=== PATIENT | female | born 1975 | race Caucasian/White ===

== ENCOUNTER 2017-08-03 18:00 | Outpatient (CLI) | payer OTHER | END 2017-08-03 18:01 | disposition home or self-care (01) | LOC: SLEEPLAB 18:00 | PROVIDERS: ATTEND Nurse Practitioner Family | DX: G47.33 Obstructive sleep apnea (adult) (pediatric) (principal); E66.9 Obesity, unspecified; R06.83 Snoring; F32.9 Major depressive disorder, single episode, unspecified; F41.9 Anxiety disorder, unspecified; G47.00 Insomnia, unspecified; E11.9 Type 2 diabetes mellitus without complications; Z68.43 Body mass index [BMI] 50.0-59.9, adult | CPT/HCPCS: 95806 ==

== ENCOUNTER 2019-10-20 13:14 | Inpatient (IN) | payer OTHER ==
[~2019-10-20 13:14] MED LIST: Iopamidol-370 76% 500 ML 1 ML ONE
[2019-10-20 13:47] LABS: #Basophils 0.1 thou/uL (0.0-0.2); #Eosinphils 0.3 thou/uL (0.0-0.7); #Lymphocytes 3.3 thou/uL (1.20-3.40); #Neutrophils 7.1 thou/uL (1.40-6.50); %Eosinophils 2.6 % (0.0-10.0); %Lymphocytes 27.9 % (21.0-51.0); %Monocytes 8.7 % (0.0-10.0); %Neutrophils 59.9 % (42.0-75.0); Hemoglobin 10.5 g/dL (12.0-16.0); Mean Corpuscular HGB CONC 31.8 g/dL (32.0-36.0); Mean Corpuscular Hemoglobin 32.1 pg (27.0-31.0); Mean Platelet Volume 8.9 fL (7.4-10.4); Platelet Count 127 thou/uL (130-400); RBC Distribution Width 12.7 % (11.5-14.5); Red Blood Cell (RBC) Count 3.26 mill/uL (4.20-5.40); White Blood Cell (WBC) Count 11.8 thou/uL (4.8-10.8)
[2019-10-20 13:52] LABS: INR-International Normal Ratio 1.6; PTT 27.1 sec (22.9-36.1); Prothrombin Time 18.6 sec (12.0-14.7)
[2019-10-20 14:02] LABS: ALT (SGPT) 25 U/L (8-55); AST (SGOT) 40 U/L (5-34); Albumin 2.6 g/dL (3.5-5.0); Alkaline Phosphatase 132 U/L (40-110); Anion Gap 12 mmol/L (10-20); BUN (Urea Nitrogen) 16 mg/dL (7.0-18.7); Bilirubin, Total 1.8 mg/dL (0.2-1.2); CK (CPK) 107 U/L (29-168); Calc. Creatinine Clearance 0 mL/min (70-130); Calcium 7.7 mg/dL (7.8-10.44); Carbon Dioxide 19 mmol/L (22-29); Chloride 105 mmol/L (98-107); Estimated GFR-MDRD 83; Globulin 3.1 g/dL (2.4-3.5); Glucose 178 mg/dL (70-105); Lipase 54 U/L (8-78); Protein, Total 5.7 g/dL (6.0-8.3); Sodium 132 mmol/L (136-145)
--- NOTE | 2019-10-20 14:40 | CT ---
CT BRAIN WITHOUT CONTRAST: HISTORY: Trauma, syncope, vomiting blood COMPARISON: 10/13/2012 FINDINGS: No evidence of acute infarct, hemorrhage, midline shift or abnormal extra-axial fluid collections is seen. The ventricular size is appropriate and the basilar cisterns are patent. The bony calvarium is intact. The visualized paranasal sinuses and mastoid air cells are well aerated. IMPRESSION: No CT evidence of acute intracranial process.
--- NOTE | 2019-10-20 14:47 | CT ---
CT CERVICAL SPINE WITH CORONAL AND SAGITTAL REFORMATIONS AND NO IV CONTRAST: HISTORY: Syncope, fall, neck pain FINDINGS: There are mild degenerative changes . No fracture, subluxation or facet malalignment is identified. No prevertebral soft tissue swelling is apparent. The visualized lung apices are unremarkable. IMPRESSION: No CT evidence for fracture or traumatic subluxation.
--- NOTE | 2019-10-20 15:14 | RAD ---
XR Chest 1 View Portable HISTORY: Syncope COMPARISON: 10/13/2012 FINDINGS: The heart size is normal. The lungs are well expanded without focal areas of consolidation, pneumothorax or pleural effusions. IMPRESSION: No radiographic evidence of acute cardiopulmonary process.
[2019-10-20] MEDS ORDERED: Pantoprazole 40 MG VIAL ONE (15:31)
--- NOTE | 2019-10-20 15:41 | CT ---
CT OF THE ABDOMEN AND PELVIS WITH IV CONTRAST: 10/20/19 INDICATION: 44-year-old female involved in a trauma with history of syncope and vomiting blood and hypotension. COMPARISON: None. FINDINGS: The visualized lung bases are clear. The gallbladder is surgically absent. There is debris, fluid and gas distending the stomach which is nonspecific. There are mild varicosities seen within the paraesophageal region within the gastrohepat ic ligament. The spleen measures 14.6 cm. There is a nodular contour of the liver, suspicious for und erlying cirrhosis. The pancreas and adrenal glands appear within normal limits. Kidneys are normal ap pearing. The bladder is decompressed. Unopacified large and small bowel show no definite acute abnorm ality. The small bowel is normal appearing. There is scattered degenerative and osteoarthritic change. No definite acute osseous abnormality is e vident. IMPRESSION: 1. Findings of cirrhosis with portal hypertension with prominent gastrohepatic paraesophageal va ricosities. 2. No additional acute abnormality. 3. Cholecystectomy. POS: [facility]
[2019-10-20] MEDS ORDERED: Sodium Chloride 0.9% (PF) 10 ML VIAL FS PRN (15:45)
[2019-10-20] MEDS ORDERED: Pantoprazole 80 MG, Admixture Fee 1 EACH in Sodium Chloride 0.9% 100 ML IVPB SCH (15:45)
[2019-10-20] MEDS ORDERED: Octreotide Acetate 1,250 MCG in Sodium Chloride 0.9% 250 ML 250 ML IVPB SCH (16:00)
[2019-10-20] MEDS ORDERED: Octreotide Acetate 100 MCG/ML VIAL SLOW IVP SCH (16:00)
[2019-10-20] MEDS ORDERED: Pantoprazole 40 MG VIAL IVP SCH (16:00)
[2019-10-20] MEDS ORDERED: Sodium Chloride 0.9% 1,000 ML IV SCH (16:00)
[2019-10-20] MEDS ORDERED: cefTRIAXone\\ROCEPHIN 1 GM VIAL ONE (16:34)
[2019-10-20] MEDS ORDERED: Dextrose 50% Abboject 50 ML SYRINGE SLOW IVP PRN (16:55)
[2019-10-20] MEDS ORDERED: HumaLOG 300 UNITS/3 ML VIAL SC PRN (16:55)
[2019-10-20] MEDS ORDERED: Dextrose 5% in Water 1,000 ML IV PRN (16:55)
[2019-10-20] MEDS ORDERED: Ondansetron ODT 4 MG TAB PO PRN (17:13)
[2019-10-20] MEDS ORDERED: Ondansetron PF 4 MG/2 ML Vial IVP PRN (17:13)
[2019-10-20] MEDS ORDERED: Acetaminophen 325 MG TAB PO PRN (17:13)
[2019-10-20 17:56] LABS: Iron 185 ug/dL (50-170); Iron Binding Capacity, Total 181 mcg/dL (265-497)
[2019-10-20 18:09] LABS: Ferritin 101.87 ng/mL (10-291); Thyroid Stimulating Hormone 0.5155 uIU/mL (0.35-4.94)
--- NOTE | 2019-10-20 18:14 | HP ---
PRIMARY CARE PHYSICIAN: Grant Smith MD CHIEF COMPLAINT: Syncope with collapse. HISTORY OF PRESENT ILLNESS: The patient is a 44-year-old female with past medical history significant for diabetes type 2, non-insulin dependent; morbid obesity; and migraine headaches, who presents to the ER for the above complaint. The patient reports waking up this morning with generalized abdominal cramping, it was constant. It was associated with nausea and general malaise. She denies any vomiting or diarrhea. She denies dysuria. She denies any recent fever or chills. She reports that she decided to go in to work where her symptoms continued. She went to the bathroom and had 3 to 4 dark stools. Denies any pain with BM. She denies any vomiting. She reports that she also became diaphoretic and felt dizzy. She called her spouse and her spouse drove her to the local clinic for further evaluation. On the way to the clinic, she felt nauseous, so she got out of the car to vomit. Next thing she remembers is that EMS was standing over. Her had called the EMS after she collapsed on the ground and hit her head on a curb. When EMS arrived, the patient had a reported blood pressure of 80/40, approximately 400 mL of bright red blood on her shirt and chest. Her GCS was 15. She was given 1 L of normal saline. She was taken to the ER. In the ER, the patient presented with stable vital signs. She was afebrile, normal blood pressure of 107/57, heart rate was normal, respirations were normal at 98% on room air. CT of the brain and C-spine was negative for any acute intracranial bleed or fracture. CT of the abdomen was positive for cirrhosis of the liver with esophageal varices and portal hypertension. Her initial hemoglobin was 10.5, repeat hemoglobin was 11. Her fecal occult blood was positive. The patient was placed on octreotide and Protonix drip and was given IV fluids, 2 L of normal saline. She was given Rocephin IV. Dr. Garcia was consulted. Of note, the patient reports that she had a hysterectomy in 2018 and the doctor who performed the surgery informed her that her liver looked cirrhotic and she got a referral to Dr. Ragland for further evaluation. Dr. Ragland told her that she had a fatty liver and did not have cirrhosis. She denies any history of chronic NSAID usage or alcohol intake. She has not had any recent procedures or surgeries. She is not on any blood thinning medications. She denies any history of any IV drug use. Has no risk factors for hepatitis. PAST MEDICAL HISTORY: 1. Type 2 diabetes, noninsulin dependent. 2. Morbid obesity. 3. Migraines. PAST SURGICAL HISTORY: 1. Hysterectomy in 2018. 2. Cholecystectomy. SOCIAL HISTORY: The patient lives with her in [place]. She works for [employer] She has no history of smoking, illicit drug use, or alcohol intake. FAMILY HISTORY: The patient is adopted. ALLERGIES: 1. NAPROXEN. 2. NSAIDS. HOME MEDICATIONS: 1. Metformin 500 mg p.o. t.i.d. 2. Multivitamin. REVIEW OF SYSTEMS: All review of systems are negative unless otherwise stated in HPI. PHYSICAL EXAMINATION: VITAL SIGNS: Temperature 98.1, blood pressure 107/57, heart rate is 71, respirations 20, and 98% on room air, 0/10 pain. CONSTITUTIONAL: The patient is alert and oriented to person, place, and time. No acute distress. Nontoxic in appearance. She is able to stand and ambulate without any assistance. She is obese. HEENT: Head; atraumatic and normocephalic. Eyes; PERRLA. Extraocular muscles intact. Sclerae nonicteric. NECK: Supple. Trachea midline. No JVD. No cervical adenopathy. No central spinous tenderness. Full range of motion. ENT: Nares patent bilaterally. TMs intact bilaterally. Oropharynx is clear. Uvula midline. Moist mucous membranes. No pallor. No oral lesions. RESPIRATORY/CHEST: Respirations even and nonlabored. Clear to auscultation. No rhonchi, wheezes, or rales. CARDIOVASCULAR: S1, S2 appreciated. No murmurs, rubs, or gallops. ABDOMEN: Abdomen is soft, nontender. Active bowel sounds. No guarding. No rigidity. No rebound tenderness. Negative Rovsing sign. No abdominal bruit auscultated. BACK: Full range of motion. No central spinous tenderness. No CVA tenderness. EXTREMITIES: Upper extremities, full range of motion. Strength normal. Sensation intact. Palpable radial pulses. Lower extremities; full range of motion, normal strength, sensation intact. Palpable pedal pulses. No swelling. NEUROLOGIC: Cranial nerves 2 through 12 intact. The patient is alert and oriented to person, place, and time. No focal deficits. Stable gait. PSYCHIATRIC: Normal affect. Alert and oriented to person, place, and time. LABS AND DIAGNOSTICS: CT of the abdomen was positive for cirrhotic liver with esophageal varices and portal hypertension. CT of the brain was negative for any acute intracranial process. CT of the C-spine was negative for any acute fracture or dislocation. EKG NSR. Chest x-ray was negative. Initial troponin was negative. BNP was 19.5. Sodium 132, potassium 4, chloride 105, CO2 of 19, BUN 16, creatinine 0.76 , glucose 178, T-bilirubin 1.8, alkaline phosphatase 132, AST 40, ALT 25, PT 18.6 , INR 1.6. Fecal occult blood was positive with WBCs 11.8, hemoglobin 11, hematocrit 32.9, and platelets 127. IMPRESSION AND PLAN: 1. Upper gastrointestinal bleed. We will admit the patient to the telemetry floor inpatient status. Expected length of stay, at least 2 midnights. We will continue Protonix and octreotide drips. We will continue IV fluid support. We will continue Rocephin daily. We will consult GI. We will trend hemoglobin and hematocrit q.4 hours. We will check orthostatic vital signs. We will get alpha-1 antitrypsin, hepatitis panel, AMA, ARANZA, fasting lipid panel, and iron studies. We will avoid all nonsteroidal anti-inflammatory drugs. 2. Acute blood loss anemia. Likely secondary to problem #1. 3. Syncope with collapse, likely secondary to upper gastrointestinal bleed. The patient had no cardiovascular symptoms. She denies any chest pain or heart palpitations. She does have cardiovascular risk factors, morbid obesity, and diabetes. Initial troponin was negative. EKG was normal. We will continue to trend troponins, and we will continue to registered nurse cardiac telemetry. 4. Diabetes type 2, noninsulin dependent. The patient takes metformin 500 mg t.i.d. We will hold metformin for now. We will start the patient on mild sliding scale and add Accu-Cheks a.c. and at bedtime. 5. Morbid obesity. 6. SCDs for deep venous thrombosis prophylaxis. No pharmaco deep venous thrombosis prophylaxis. 7. Protonix for gastrointestinal prophylaxis. The patient is a full code. Her MPOA is her , Nir, his number is [phone]. Discussed the case with Dr. Lainez. Job ID: [id number] [facility]IATRIC CENTERAgnes
[2019-10-20 18:24] LABS: HBCM Index 0.08 S/CO (0-0.79); HBSAg Index 0.26 S/CO (0-0.99); Hep A IgM AB Non-Reactive (NonReactive); Hep A IgM S/CO 0.18 S/CO (0-0.79); Hep B Surf Ag Non-Reactive S/CO (NonReactive); Hep C IgG Ab Non-Reactive (NonReactive); Hepatitis B Core IgM Abs Non-Reactive (NonReactive)
[2019-10-20 20:02] VITALS: BMI 50.0
[2019-10-20 20:12] LABS: Troponin I 0.287 ng/mL (< 0.028)
[2019-10-20] MEDS: Sodium Chloride 0.9% 1,000 ML IV SCH (21:00)
[2019-10-20 22:29] LABS: Troponin I 0.022 ng/mL (< 0.028)
[2019-10-21] MEDS ORDERED: Sodium Chloride 0.9% (PF) 10 ML VIAL FS PRN (00:42)
[2019-10-21 00:57] LABS: Hemoglobin 9.1 g/dL (12.0-16.0)
[2019-10-21 04:56] LABS: ALT (SGPT) 27 U/L (8-55); AST (SGOT) 38 U/L (5-34); Albumin 2.6 g/dL (3.5-5.0); Alkaline Phosphatase 108 U/L (40-110); Anion Gap 10 mmol/L (10-20); BUN (Urea Nitrogen) 17 mg/dL (7.0-18.7); Bilirubin, Total 1.3 mg/dL (0.2-1.2); Calc. Creatinine Clearance 237 mL/min (70-130); Calcium 7.6 mg/dL (7.8-10.44); Carbon Dioxide 22 mmol/L (22-29); Chloride 110 mmol/L (98-107); Estimated GFR-MDRD Greater than 90; Globulin 2.9 g/dL (2.4-3.5); Glucose 169 mg/dL (70-105); Potassium 4.2 mmol/L (3.5-5.1); Protein, Total 5.5 g/dL (6.0-8.3); Sodium 138 mmol/L (136-145)
[2019-10-21 05:17] LABS: Amphetamine Not Detected (NotDetected); Barbiturates Screen Not Detected (NotDetected); Benzodiazepine Screen Not Detected (NotDetected); Cocaine Metabolite Screen Not Detected (NotDetected); Medtox Control Line Valid? VALID (VALID); Medtox Reader # READER 4; Methadone Not Detected (NotDetected); Methamphetamine Not Detected (NotDetected); Opiate Screen Not Detected (NotDetected); Oxycodone Screen Not Detected (NotDetected); Phencyclidine (PCP) Not Detected (NotDetected); THC/Cannabinoid Screen Not Detected (NotDetected); Tricyclic Screen Not Detected (NotDetected)
[2019-10-21] MEDS: Sodium Chloride 0.9% 1,000 ML IV SCH ×2 (05:34→22:53)
[2019-10-21 08:30] LABS: #Basophils 0.1 thou/uL (0.0-0.2); #Eosinphils 0.2 thou/uL (0.0-0.7); #Lymphocytes 2.7 thou/uL (1.20-3.40); #Monocytes 1.2 thou/uL (0.11-0.59); #Neutrophils 9.1 thou/uL (1.40-6.50); %Basophils 0.6 % (0.0-1.0); %Eosinophils 1.6 % (0.0-10.0); %Neutrophils 68.8 % (42.0-75.0); Hemoglobin 8.4 g/dL (12.0-16.0); Mean Corpuscular HGB CONC 33.4 g/dL (32.0-36.0); Mean Corpuscular Hemoglobin 33.1 pg (27.0-31.0); Mean Corpuscular Volume 98.9 fL (78.0-98.0); Mean Platelet Volume 8.6 fL (7.4-10.4); Platelet Count 102 thou/uL (130-400); Platelet Morphology Comment Appears Decreased; RBC Distribution Width 12.9 % (11.5-14.5); Red Blood Cell (RBC) Count 2.55 mill/uL (4.20-5.40); White Blood Cell (WBC) Count 13.2 thou/uL (4.8-10.8)
[2019-10-21 08:31] LABS: MDiff Complete? YES
[2019-10-21 09:54] LABS: Hemoglobin 8.4 g/dL (12.0-16.0)
--- NOTE | 2019-10-21 10:35 | CON ---
DATE OF CONSULTATION: 10/20/2019 REASON FOR CONSULTATION: GI hemorrhage. CONSULTING PHYSICIAN: Dr. Mahesh Lainez. HISTORY OF PRESENT ILLNESS: Ms. Henry is a pleasant 44-year-old female, who has been seen by Dr. Ragland in the past for fatty liver. There has been concern for cirrhosis at the time of her hysterectomy about 4 years ago. She states initially she was seen back in the late by Dr. Ragland. After she had some problems after cholecystectomy, she reports she had ERCP and a colonoscopy back then. Subsequent to that some point in time, she was diagnosed with fatty liver, which she has followed for some time and then more recently when she had her hysterectomy, the surgeon told her though she had cirrhosis, then she followed back up with Dr. Ragland that was about 4 or 5 years ago, and apparently at that time it is felt that her liver disease had not really progressed that much, that evaluation is really not available to me at this time. In any event, she has been feeling well and doing okay. She takes medicines for diabetes and high blood pressure. She does not smoke. She has not used any drugs in the past. She states that pretty significant evaluation for abnormal LFTs have been normal in the past with Dr. Ragland. She was at work this morning when she felt a little bit ill and cramping in the lower abdomen and when ultimately had a melenic stool followed by several other, she began to feel weak and just thought maybe some of her , so she took her metformin had a little snack. She got up to go to out of town or she was going to drop off some parts, but then became dizzy and weak and called her . They are going to go to the [facility] in police clinic over here by the hospital. When they got there, she had episodes of hematemesis and then passed out. Also, she was brought to [place] by EMS and threw up a few more times in the ambulance apparently. She was initially mildly hypotensive in the ER. Dr. Weathers called me and she stabilized her pressure is as low as 101/83. Her pulse rate was 91 and 70 and stabilized in mid 80s. She notes she has had no melena or further hematemesis since admission. She was started on PPI and Protonix. She had a chest x-ray in the emergency room that was normal. Because of her fall and hitting her head, she had a CT of brain and cervical spine in the emergency room, which were normal and she had a CAT scan of abdomen and pelvis, which revealed portal hypertensive change with prominent gastrohepatic, paraesophageal varices, cirrhotic liver, previous cholecystectomy. No overt masses or lesions were identified in the liver; although, this was not a three-phase study. I talked with the patient, she has never had any GI bleeding before. She does take NSAIDs, ibuprofen occasionally for headaches but not more than one or two a week. She denies alcohol use. She states she is getting immunized for hepatitis B. She denies any episodes of confusion or edema. No family history of cirrhosis, but she was adopted. She has no family history. PAST MEDICAL HISTORY: Type 2 diabetes, nonalcoholic fatty liver disease, possible cirrhosis based on although GI followup apparently did not reveal that. History of endometriosis. Polycystic ovarian syndrome. PAST SURGICAL HISTORY: Cholecystectomy, hysterectomy, previous lysis of adhesions, right ovarian cystectomy and ablation of endometriosis in the past. ALLERGIES: NAPROSYN, UNCLEAR SOURCE. MEDICATIONS: Medications at home: 1. Metformin. 2. Multivitamin. Medications here: 1. Rocephin q.24 hours. 2. Sliding scale insulin. 3. Octreotide drip. 4. Zofran p.r.n. 5. Protonix drip. 6. Normal saline 100 an hour. PHYSICAL EXAMINATION: GENERAL: The patient is resting comfortably in bed. Weight is 310 pounds, temperature 97.5, pulse 83, and blood pressure 126/59. GENERAL: She is in no distress. She is a very pleasant lady. She has no overt icterus. She is alert and oriented to person, place, and time. There is thick with some hyperpigmentation consistent with PCOS syndrome. LUNGS: Clear. HEART: Regular rate and rhythm without clicks or murmurs. ABDOMEN: Soft and nontender. There is no rebound. No guarding. There is no shifting dullness or fluid wave. EXTREMITIES: No clubbing, cyanosis, or edema. She has no asterixis, palmar erythema, or spider angioma. LABORATORY DATA: Hemoglobin was 15.4 back in 2018, on presentation with hematocrit of 32.9 and 32.5, most recently at 2100 hours the hematocrit is 30. INR is 1.6. Plasma alcohol was undetectable. Hepatitis A, B, and C were negative. Platelet count was 127,000. Chemistry; sodium 132, potassium 4, chloride 105, bicarb 19, BUN 16, creatinine 0.7, glucose 178, calcium 7.7. Bilirubin 1.8, AST 40, ALT 25, alkaline phosphatase 132. Iron 210, TIBC 179, ferritin 101, albumin 2.6, total protein 5.7, these were . Triglycerides 111, troponin 0.01. TSH 0.5. ASSESSMENT: Upper GI hemorrhage. Differential diagnosis included an ulcer or varices. She does have known varices on CT scan. Her platelet count though is fairly high as atypical to have variceal hemorrhage with platelet counts greater than 100. However, with fatty liver, sometimes it will be more portal hypertension just due to the amount of fatty replacement unless due to fibrosis. PLAN: Agree with octreotide, Protonix, and empiric antibiotics. We will proceed with EGD tomorrow. We will talk with Dr. Ragland and see if what other workups have been done in the past. Some of this may need to be repeated depending on the findings of this study. The risks, benefits, and possible complications of endoscopy including perforation, bleeding, reaction of medication, aspiration, unable to control bleeding, the possibly finding of varices require TIPS or other intervention discussed with the patient and her over the phone this evening. I will talk with him tomorrow before and after the procedure. Job ID: [id number]
[2019-10-21] MEDS ORDERED: Propofol 1,000 MG/100 ML VIAL IV ONE ×5 (11:12→19:06)
[2019-10-21] MEDS ORDERED: hydrALAZINE 20 MG/ML VIAL ONE (11:57)
--- NOTE | 2019-10-21 11:58 | OP ---
DATE OF PROCEDURE: 10/21/2019 PROCEDURE PERFORMED: Esophagogastroduodenoscopy, control of hemorrhage. PREPROCEDURE DIAGNOSES: 1. Cirrhosis, presumptively from nonalcoholic fatty liver disease. 2. Gastrointestinal hemorrhage with varices noted on CT scan. Hemoglobin 8.4, dropped from 11.0 on admission. Platelet count 102. INR 1.6. ANESTHESIA: General endotracheal anesthesia. POSTPROCEDURE DIAGNOSES: 1. Esophageal varices, one with thrombin clot, grade 3, with multiple red kia signs. 2. Portal hypertensive gastropathy with no bleeding or varices in the stomach. 3. Normal duodenum to the third portion. 4. Esophageal variceal banding x8 performed, slight oozing persisted to the end of the procedure, decision was made to leave the patient intubated for airway protection for 24 hours. RECOMMENDATIONS: 1. Continue octreotide drip. 2. Continue Protonix IV q.12. 3. N.p.o. 4. No NG tube. 5. Continue airway protection in the ventilator, plan for extubation in the morning if remains stable. 6. Would not transfuse unless hemoglobin less than 7. 7. Pulmonary consulted. Case discussed with them. . PROCEDURE IN DETAIL: After the patient was informed of the risks, benefits, and possible complications of endoscopy including perforation, reaction to medication, aspiration, informed consent was obtained. The likelihood of variceal bleeding was discussed with the patient and on the phone he is not allowed to come into the hospital secondary to COVID restrictions in visitation. She was intubated. The endoscope was advanced through the esophagus, stomach, to the second and third portions of the duodenum and slowly removed. The duodenum was normal. The stomach was notable for portal hypertensive gastropathy with no variceal bleeding or blood. The stomach was fully distended. It was normal on forward and retroflexed views. The endoscope was then brought into the esophagus, where 3 to 4 columns of grade 3 varices with multiple red kia signs and one thrombin clot were noted. There was no active bleeding. Banding was started at 40 cm just below the GE junction and continued to the 30 cm with ablation of varices, there was slight oozing from the varix with the thrombin clot. At the end of the procedure, even though the area had been banded thoroughly, decision was made to keep the patient ventilated for airway protection. The scope was removed. The patient was brought to recovery room in stable condition. The findings and plan were discussed with the patient's over the phone. Job ID: [id number]
[2019-10-21] MEDS ORDERED: Fentanyl 100 MCG/2 ML VIAL ONE (12:23)
[2019-10-21] MEDS ORDERED: DISCONTINUE PREVIOUS NARCOTIC PAIN MEDICATIONS AND BENZODIAZEPINES FS SCH (12:41)
[2019-10-21] MEDS ORDERED: fentaNYL Citrate/PF 2,000 MCG in Sodium Chloride 0.9% 60 ML IV SCH (12:41)
[2019-10-21] MEDS ORDERED: Fentanyl BOLUS 250 ML IVPB PRN (12:41)
[2019-10-21] MEDS ORDERED: Propofol BOLUS 1,000 MG/100 ML VIAL IV PRN (12:41)
[2019-10-21] MEDS ORDERED: Lorazepam 2 MG/ML VIAL SLOW IVP PRN (12:41)
[2019-10-21] MEDS ORDERED: PROPOFOL 200 MG/20 ML VIAL ONE (13:16)
[2019-10-21] MEDS ORDERED: Ondansetron PF 4 MG/2 ML Vial ONE (13:16)
[2019-10-21] MEDS ORDERED: Rocuronium Bromide 10 MG/ML (10ML VIAL) ONE (13:16)
[2019-10-21] MEDS ORDERED: Succinylcholine Chloride 20 MG/ML 10 ml SYRINGE FS ONE (13:16)
[2019-10-21] MEDS ORDERED: Lidocaine 1% PF 5 ML VIAL ONE (13:16)
--- NOTE | 2019-10-21 13:23 | CON ---
DATE OF CONSULTATION: HISTORY OF PRESENT ILLNESS: Gayle Henry is a 44-year-old female with varices. She was intubated for endoscopy today for variceal bleed. She was left intubated. I was consulted to assist in her postprocedure management. PAST MEDICAL HISTORY: 1. Remarkable for diabetes. 2. Fatty liver disease with cirrhosis. 3. Polycystic ovaries. 4. History of endometriosis. 5. History of cholecystectomy. 6. History of hysterectomy. 7. History of lysis of adhesions. 8. History of right ovarian cystectomy. 9. History of endometriosis ablation in the past. SOCIAL HISTORY: She is a nonsmoker and nondrinker. MEDICATIONS: She is on metformin prior to admission. ALLERGIES: SHE REPORTS ALLERGIES TO NAPROSYN. REVIEW OF SYSTEMS: Not obtainable. PHYSICAL EXAMINATION: GENERAL: She was examined in the recovery room. She was sedated. Her hemodynamics are stable. She is not hypotensive at time of my consultation. She is afebrile this morning. She was hypertensive prior to the procedure. VITAL SIGNS: Blood pressure was normal this morning. LUNGS: Clear. HEART: Regular rhythm. S1 are S2 are distant. ABDOMEN: Massive and soft. EXTREMITIES: Without clubbing, cyanosis, or edema. She is 5 feet 6 inches, 310 pounds. IMPRESSION: 1. Variceal bleed. 2. Intubation for the procedure. Because of ongoing oozing, she will be left intubated. She has a 7.0 endotracheal tube, which will not be an issue, if this is a short period mechanical ventilation. If it looks like it will be prolonged, her tube will need to be exchanged for a larger tube. 3. Overall, she appears to be stable at this time. We will follow with the other physicians caring for her. TIME SPENT: This is a 70-minute consult, 50% of the time spent on the unit coordinating care. Job ID: [id number]
[2019-10-21 13:44] LABS: Hemoglobin 9.2 g/dL (12.0-16.0)
[2019-10-21] MEDS ORDERED: cefTRIAXone\\ROCEPHIN 1 GM in Sodium Chloride 0.9% 100 ML IVPB SCH (16:00)
--- NOTE | 2019-10-21 18:05 | PDOC.HOSPP ---
- Subjective Encounter Date: 10/21/19 Encounter Time: 18:03 Subjective: Pt seen for followup re: UGIB. Intubated, unable to complete ROS. - Objective Vital Signs & Weight: Vital Signs (12 hours) Temp Pulse Resp BP BP Pulse Ox 10/21/19 14:29 106 H 161/91 H 10/21/19 11:10 100 207/114 H 10/21/19 07:45 98.4 F 72 18 120/54 L 98 Weight Admit Weight 310 lb Weight 310 lb I&O: 10/20/19 10/21/19 10/22/19 06:59 06:59 06:59 Intake Total 1000 Output Total 500 Balance 500 Result Diagrams: 10/21/19 18:10 10/21/19 04:22 Additional Labs: Accuchecks 10/21/19 10/21/19 10/20/19 15:18 05:38 20:18 POC Glucose 174 H 157 H 232 H Labs and MARs reviewed EKG Reviewed by me: Yes (Tele: NSR) Hospitalist ROS - Review of Systems ROS unobtainable: due to endotracheal tube - Exam General - other findings: Intubated; morbid obesity ENT: normocephalic atraumatic, moist mucosa ENT - other findings: ETT Neck: no thyromegaly, no lymphadenopathy Heart: RRR Respiratory: CTAB Gastrointestinal: soft, non-tender Extremities: no cyanosis Psychiatric - other findings: Unable to assess Hosp A/P (1) Upper GI bleed Code(s): K92.2 - GASTROINTESTINAL HEMORRHAGE, UNSPECIFIED Status: Acute (2) DM2 (diabetes mellitus, type 2) Status: Chronic (3) HTN (hypertension) Code(s): I10 - ESSENTIAL (PRIMARY) HYPERTENSION Status: Chronic - Plan Pt is currently inbtubated, s/p variceal banding. To be admitted to CCU. Continue octreotide drip and IV Protonix. Continue accuchecks and insulin sliding scale.
[2019-10-21 18:20] LABS: Hemoglobin 8.8 g/dL (12.0-16.0)
[2019-10-21] MEDS: Pantoprazole 40 MG VIAL IVP SCH ×2 (19:19→23:01)
--- NOTE | 2019-10-21 19:52 | CON ---
DATE OF CONSULTATION: 10/21/2019 REASON FOR CONSULT: Difficulty placing a Garcia catheter in PACU. HISTORY OF PRESENT ILLNESS: Ms. Henry is a 44-year-old morbidly obese female , patient currently in PACU, underwent EGD by Dr. Garcia as she presents with GI bleed and anemia. I reviewed her clinical history as she is unable to provide as she is currently intubated, waiting a CCU bed. CT demonstrated findings consistent with cirrhosis, portal hypertension, prominent paraesophageal varices. Kidneys demonstrate no evidence of hydronephrosis. The bladder is decompressed with no significant bladder distention of concern. She require strict I's and O's due to acute GI bleed, intubated. Garcia catheter attempted by nursing staff in PACU x2 , Dominican catheter was attempted. As it was unable to be placed, urologic consultation was obtained. PAST MEDICAL HISTORY: Includes type 2 diabetes, nonalcoholic fatty liver disease, cirrhosis, GI bleed, history of endometriosis, and polycystic ovarian syndrome. PAST SURGICAL HISTORY: Include hysterectomy in 2018 and cholecystectomy. SOCIAL HISTORY: She lives in [place] with her , works at [employer]. No history of alcohol or illicit drugs. FAMILY HISTORY: The patient is adopted. ALLERGIES: SHE IS ALLERGIC TO NAPROXEN AND NSAIDS. MEDICATIONS: Home medications include metformin 500 mg t.i.d. Current medications in-house demonstrates, 1. Rocephin. 2. Fentanyl. 3. Glucagon. 4. Insulin sliding scale. 5. Ativan. 6. Morphine. 7. Octreotide. 8. Zofran. 9. Propofol. 10. Protonix. REVIEW OF SYSTEMS: A 10-point review of systems was obtained per chart, appears to be negative, unless stated otherwise I am unable to obtain review of systems as she is intubated. PHYSICAL EXAMINATION: VITAL SIGNS: Stable. HEENT: Atraumatic and intubated. NECK: Soft and supple. RESPIRATORY: Coarse, but she is intubated. HEART: Regular rate. ABDOMEN: Morbidly obese, protuberant. EXTREMITIES: Lower extremity with no evidence of calf tenderness. NEUROLOGIC: Unable to assess as she is intubated. PSYCHIATRIC: Unable to assess as she is intubated. PERTINENT IMAGING DATA: CT, which I reviewed myself. Dated October 20, 2019 with IV contrast. Cirrhosis, portal hypertension, significant paraesophageal varices, cholecystectomy. Per my review, kidneys are unremarkable. Bladder is decompressed with no significant distention. PERTINENT LABORATORY DATA: White count 13; hemoglobin 8.4, currently 9.2; platelets 102. INR 1.6, PTT 27. Creatinine 0.6. Urine tox screen is negative. Hepatitis panel is negative. BEDSIDE PROCEDURE: The patient has significant panniculus, significant prepubertal fat as she is morbidly obese. Nursing assist required to retract her panniculus and mons pubis, there is no significant prolapse of concern. Her area was formally prepped and draped and a 16-Dominican Garcia catheter was able to be passed without significant issues. Difficulty Garcia catheter placement is due to her morbid obesity. There is no evidence of anatomical obstruction with adequate retraction of her prepubertal fat. Catheter passed without significant issues, obtained concentrated yellow urine. Catheter secured after 10 mL insufflated. IMPRESSION AND PLAN: Ms. Henry is a 44-year-old female, recently underwent EGD by Dr. Garcia, presents with esophageal bleed. Urology consultation was obtained as Garcia catheter has been difficult for the PACU nurse to place. On exam, there is no evidence of anatomical issues of concern. She is morbidly obese and required retraction of her prepubertal fat to see her vaginal introitus properly. She may continue her indwelling Garcia catheter for now. When she is out of bed, mobile, Garcia catheter can be removed. will sign off. Job ID: [id number] MTDD
[2019-10-21] MEDS: Propofol 1,000 MG/100 ML VIAL IV PRN (21:24)
--- NOTE | 2019-10-21 21:47 | RAD ---
EXAM: CHEST ONE VIEW HISTORY: Syncope. Lightheadedness. Possible loss of consciousness. Bright red emesis. COMPARISON: 10/20/2019 FINDINGS: There has been interval placement of an endotracheal tube with tip overlying the T3 vertebral body an d above the level of the sofia. A left subclavian central venous catheter has also been placed in the interim with the tip overlying the expected location of the cavoatrial junction. The cardiac silh ouette and bronchovascular markings are accentuated by the shallow depth of inspiration and portable technique of the exam. No consolidation or pleural fluid is appreciated. Minimal patchy dens ity at the left lung base may be related to volume loss. Pneumonitis is a possibility. No other interval change. IMPRESSION: 1. Interval placement of an endotracheal tube and nasogastric tube. No pneumothorax is appreciated 2. Accentuation of the bronchovascular markings due to a shallow depth inspiration portable technique . Minimal patchy density at the left lung base is also likely related to volume loss due to low lung volumes.
[2019-10-21 22:12] LABS: Actual Bicarbonate (HCO3a) 21.9 mEq/L (22-28); Base Excess (BEa) -3.1 mEq/L (-2.0 to +3.0); CO2 Tension 38.5 mmHg (35.0-45.0); Calcium, Ionized (arterial) 1.07 mmol/L (1.12-1.30); Carboxyhemoglobin (COHb) 0.3 gm% (0.0-3.0); Hemoglobin (Hb) 9.7 g/dL (12.0-16.0); O2 Tension (PaO2), arterial 154.2 mmHg (80.0-100.0); Potassium - ABG Lab 3.92 mmol/L (3.70-5.30); pH, Arterial 7.37 (7.35-7.45)
[2019-10-21 22:19] LABS: Puncture Site RRA
[2019-10-21 22:20] LABS: ALV-art Gradient 225.475 (0-20)
--- NOTE | 2019-10-21 22:37 | OP ---
DATE OF PROCEDURE: 10/21/2019 PREOPERATIVE DIAGNOSES: 1. Acute hemorrhagic shock, status post EGD and control of esophageal variceal bleeding. 2. Morbid obesity. BMI of 50. POSTOPERATIVE DIAGNOSES: 1. Acute hemorrhagic shock, status post EGD and control of esophageal variceal bleeding. 2. Morbid obesity. BMI of 50. PROCEDURE PERFORMED: Placement of triple-lumen left subclavian central venous catheter. INDICATIONS FOR PROCEDURE: A 44-year-old morbidly obese woman, BMI 50, underwent emergent EGD and control of esophageal variceal bleeding. Postoperatively, the patient was hypertensive, requiring ongoing resuscitation. I was asked to place a central venous catheter as dependable peripheral IV access has been unsuccessful. DESCRIPTION OF PROCEDURE: Informed consent was obtained from the patient's family. The patient was placed in supine position. Left chest wall was sterilely prepped and draped in usual fashion. The skin below the left clavicle was anesthetized with 1% lidocaine. Left subclavian vein was cannulated with an 18-gauge introducer needle returning dark venous blood. Guidewire was passed through the needle and advanced into the left subclavian vein without resistance. Needle was withdrawn over the guidewire. A stab incision was made adjacent to the guidewire using 11 scalpel. Dilator was passed over the guidewire dilating the subcutaneous tissues. Dilator was removed, and a triple-lumen central venous catheter was advanced over the guidewire and placed in the left subclavian vein without resistance down to the hub. Guidewire was removed. Dark venous blood was aspirated from all three ports, which were individually flushed with saline. The catheter was secured to anterior chest wall using 3-0 silk suture at 2 points. Sterile dressings were applied. The patient tolerated the procedure without any apparent complication and remains hemodynamically stable following completion of procedure. Chest x-ray was obtained confirming proper placement of the catheter. No pneumothorax present. Job ID: [id number]
[2019-10-21] MEDS: cefTRIAXone\\ROCEPHIN 1 GM in Sodium Chloride 0.9% 100 ML IVPB SCH (22:54)
[2019-10-22] MEDS: Propofol 1,000 MG/100 ML VIAL IV PRN ×3 (00:19→08:07)
[2019-10-22 03:39] LABS: #Basophils 0.1 thou/uL (0.0-0.2); #Eosinphils 0.4 thou/uL (0.0-0.7); #Lymphocytes 2.6 thou/uL (1.20-3.40); #Monocytes 1.3 thou/uL (0.11-0.59); #Neutrophils 6.8 thou/uL (1.40-6.50); %Basophils 0.7 % (0.0-1.0); %Eosinophils 3.5 % (0.0-10.0); %Lymphocytes 23.5 % (21.0-51.0); %Monocytes 11.4 % (0.0-10.0); %Neutrophils 60.8 % (42.0-75.0); Hemoglobin 7.9 g/dL (12.0-16.0); Mean Corpuscular HGB CONC 33.4 g/dL (32.0-36.0); Mean Corpuscular Volume 99.1 fL (78.0-98.0); Mean Platelet Volume 7.9 fL (7.4-10.4); Platelet Count 127 thou/uL (130-400); RBC Distribution Width 13.2 % (11.5-14.5); Red Blood Cell (RBC) Count 2.38 mill/uL (4.20-5.40); White Blood Cell (WBC) Count 11.2 thou/uL (4.8-10.8)
[2019-10-22 03:45] LABS: INR-International Normal Ratio 1.4; Prothrombin Time 16.8 sec (12.0-14.7)
[2019-10-22 04:03] LABS: ALT (SGPT) 30 U/L (8-55); AST (SGOT) 47 U/L (5-34); Albumin 2.5 g/dL (3.5-5.0); Alkaline Phosphatase 85 U/L (40-110); Anion Gap 8 mmol/L (10-20); BUN (Urea Nitrogen) 12 mg/dL (7.0-18.7); Bilirubin, Total 0.7 mg/dL (0.2-1.2); Calc. Creatinine Clearance 244 mL/min (70-130); Carbon Dioxide 24 mmol/L (22-29); Chloride 109 mmol/L (98-107); Estimated GFR-MDRD Greater than 90; Globulin 2.9 g/dL (2.4-3.5); Glucose 163 mg/dL (70-105); Potassium 3.7 mmol/L (3.5-5.1); Protein, Total 5.4 g/dL (6.0-8.3); Sodium 137 mmol/L (136-145)
[2019-10-22] MEDS: Octreotide Acetate 1,250 MCG in Sodium Chloride 0.9% 250 ML 250 ML IVPB SCH ×2 (04:37→18:03)
[2019-10-22] MEDS: Sodium Chloride 0.9% 1,000 ML IV SCH ×3 (06:15→18:02)
[2019-10-22] MEDS: Pantoprazole 40 MG VIAL IVP SCH ×2 (08:43→22:21)
[2019-10-22 09:15] LABS: Hemoglobin 8.2 g/dL (12.0-16.0)
--- NOTE | 2019-10-22 13:11 | PDOC.HOSPP ---
- Subjective Encounter Date: 10/22/19 Encounter Time: 11:45 Subjective: is on vent, sedated. - Objective Vital Signs & Weight: Vital Signs (12 hours) Temp Pulse Resp BP Pulse Ox 10/22/19 11:57 98.5 F 97 10/22/19 10:23 95 128/72 10/22/19 10:00 12 10/22/19 08:00 12 10/22/19 07:13 99 10/22/19 07:03 94 113/63 10/22/19 04:01 94 118/70 Weight Admit Weight 310 lb Weight 310 lb Most Recent Monitor Data Heart Rate from ECG 101 NIBP 150/84 NIBP BP-Mean 106 Respiration from ECG 19 SpO2 96 I&O: 10/21/19 10/22/19 10/23/19 06:59 06:59 06:59 Intake Total 1000 4306.5 0 Output Total 500 1075 270 Balance 500 3231.5 -270 Result Diagrams: 10/22/19 09:05 10/22/19 03:25 Additional Labs: Accuchecks 10/22/19 10/22/19 10/21/19 09:10 06:14 15:18 POC Glucose 160 H 155 H 174 H Hospitalist ROS - Medication Medications: Active Medications Generic Name Dose Route Start Last Admin Trade Name Freq PRN Reason Stop Dose Admin Octreotide Acetate 1,250 mcg/ 251.25 mls @ 20.1 mls/hr 10/20/19 17:00 04:37 Sodium Chloride IVPB 251.25 mls INF HEATHER Administration 100 MCG/HR Sodium Chloride 1,000 mls @ 80 mls/hr 10/21/19 11:17 10/22/19 12:54 Normal Saline 0.9% IV 1,000 mls .[id number] HEATHER Administration Ceftriaxone Sodium 1 gm/ 100 mls @ 200 mls/hr 10/21/19 18:00 10/21/19 22:54 Sodium Chloride IVPB 100 mls 1800 HEATHER Administration Pantoprazole Sodium 40 mg 10/21/19 09:00 10/22/19 08:43 Protonix IVP 40 mg Q12HR HEATHER Administration Propofol 1,000 mg 10/21/19 12:41 10/22/19 08:07 Diprivan IV 11/20/19 12:41 1,000 mg INF PRN Administration TO ACHIEVE GOAL RASS Protocol - Exam Eye: PERRL, anicteric sclera ENT: no oropharyngeal lesions, dry oral mucosa Neck: supple, no JVD Heart: RRR, no murmur Respiratory: no wheezes, no rales Gastrointestinal: soft, non-tender, non-distended, normal bowel sounds Extremities: no cyanosis, no edema Neurological: cranial nerve grossly intact, no focal deficits Hosp A/P (1) Upper GI bleed Code(s): K92.2 - GASTROINTESTINAL HEMORRHAGE, UNSPECIFIED Status: Acute (2) Acute blood loss anemia Code(s): D62 - ACUTE POSTHEMORRHAGIC ANEMIA Status: Acute (3) Acute respiratory failure with hypoxia Code(s): J96.01 - ACUTE RESPIRATORY FAILURE WITH HYPOXIA Status: Acute (4) DM2 (diabetes mellitus, type 2) Status: Chronic Qualifiers: Diabetes mellitus penitentiary insulin use: without terminal computer operator use (5) HTN (hypertension) Code(s): I10 - ESSENTIAL (PRIMARY) HYPERTENSION Status: Chronic Qualifiers: Hypertension type: essential hypertension Qualified Code(s): I10 - Essential (primary) hypertension (6) Morbid obesity with BMI of 45.0-49.9, adult Code(s): E66.01 - MORBID (SEVERE) OBESITY DUE TO EXCESS CALORIES; Z68.42 - BODY MASS INDEX (BMI) 45.0-49.9, ADULT Status: Chronic - Plan had egd with banding of nearly 8 esophageal varices H/H stable, no transfusion done yet this hospitalization hemostable on octreotide drip, protonix q12h, gentle iv fluids, empiric ceftriaxone weaning per pulm adv
--- NOTE | 2019-10-22 15:22 | PRG ---
DATE OF SERVICE: SUBJECTIVE: Ms. Henry remains intubated. Her nurse tells me the plans are for extubation today. OBJECTIVE: VITAL SIGNS: She has been afebrile overnight. Temperature 98.5, pulse 97, blood pressure 122/69. LUNGS: Clear. ABDOMEN: Soft and nontender. EXTREMITIES: No clubbing, cyanosis, or edema. NEUROLOGIC: She is alert. She is able to squeeze my hand and follow commands. LABORATORY DATA: Hemoglobin is 8.2, white count was 11.2, platelet count 127,000. Sodium 137, potassium 3.7, BUN and creatinine are 12 and 0.6. AST is 47, ALT is 30, bilirubin is 0.7 . ASSESSMENT: 1. GI hemorrhage secondary to varices, status post banding. 2. Cirrhosis seemingly from nonalcoholic fatty liver disease. 3. Kept on ventilator overnight for airway protection in light of GI hemorrhage and cirrhosis. PLAN: 1. Agree with plan for extubation today. When she is stable from respiratory standpoint, she can leave the ICU. She has low risk for rebleeding. 2. She will need repeat EGD with banding in [address] Ragland, her primary gastrologist. 3. I will keep her on octreotide for another 24 hours before weaning. Keep her on IV PPI once a day and Rocephin once daily for prophylaxis against bacteremia in cirrhotic with a GI bleed. We will follow along with you. Job ID: [id number]
[2019-10-22] MEDS: cefTRIAXone\\ROCEPHIN 1 GM in Sodium Chloride 0.9% 100 ML IVPB SCH (17:59)
--- NOTE | 2019-10-22 19:54 | PRG ---
DATE OF SERVICE: 10/22/2019 SUBJECTIVE: Gayle Henry was evaluated this morning. Her sedation was held. She passed the spontaneous breathing trial. She has had no evidence of gross bleeding. OBJECTIVE: VITAL SIGNS: She is afebrile. Heart rate is in the 90s, respiratory rate is in the teens, and oximetry is 99% to 100%. Blood pressure is 120s to 130s. LUNGS: Clear. HEART: Regular rhythm. S1 and S2 are normal. ABDOMEN: Very large and unchanged. There is no guarding. EXTREMITIES: Without asymmetry. LABORATORY DATA: White count 11.2, hemoglobin 7.9, platelets 127. Electrolytes were essentially unremarkable. Creatinine was 0.6. IMPRESSION: Respiratory failure, mechanical ventilation prophylactically after varices were addressed that were bleeding. They were still oozing a little bit at the end of the operative procedure, but clinically she is stable. ADDENDUM: She met criteria for extubation. She was extubated. Plan was to keep her in the ICU for the afternoon. If she did well, she can be transferred out of the critical care unit, this has since been done. Job ID: [id number]
[2019-10-23] MEDS: Sodium Chloride 0.9% 1,000 ML IV SCH (06:37)
[2019-10-23] MEDS: Pantoprazole 40 MG VIAL IVP SCH ×2 (09:59→20:48)
[2019-10-23] MEDS: HumaLOG 300 UNITS/3 ML VIAL SC PRN ×2 (12:23→16:40)
--- NOTE | 2019-10-23 12:50 | PDOC.HOSPP ---
- Subjective Encounter Date: 10/23/19 Encounter Time: 11:15 Subjective: no abd pain or nausea feels better has not amb yet (lives with her and mobilizes well at home) - Objective Vital Signs & Weight: Vital Signs (12 hours) Temp Pulse Resp BP Pulse Ox 10/23/19 04:00 98.8 F 74 16 124/60 94 L Weight Admit Weight 310 lb Weight 310 lb Most Recent Monitor Data Heart Rate from ECG 102 NIBP 129/75 NIBP BP-Mean 93 Respiration from ECG 21 SpO2 96 I&O: 10/22/19 10/23/19 10/24/19 06:59 06:59 06:59 Intake Total 4306.5 1175 Output Total 1075 910 Balance 3231.5 265 Result Diagrams: 10/22/19 09:05 10/22/19 03:25 Additional Labs: Accuchecks 10/23/19 10/23/19 10/22/19 12:20 05:55 20:37 POC Glucose 193 H 145 H 245 H 10/22/19 16:05 POC Glucose 153 H Hospitalist ROS - Medication Medications: Active Medications Generic Name Dose Route Start Last Admin Trade Name Freq PRN Reason Stop Dose Admin Sodium Chloride 1,000 mls @ 80 mls/hr 10/21/19 11:17 10/23/19 06:37 Normal Saline 0.9% IV 1,000 mls .[id number] HEATHER Administration Ceftriaxone Sodium 1 gm/ 100 mls @ 200 mls/hr 10/21/19 18:00 10/22/19 17:59 Sodium Chloride IVPB 100 mls 1800 HEATHER Administration Pantoprazole Sodium 40 mg 10/21/19 09:00 10/23/19 09:59 Protonix IVP 40 mg Q12HR HEATHER Administration Propofol 1,000 mg 10/21/19 12:41 10/22/19 08:07 Diprivan IV 11/20/19 12:41 1,000 mg INF PRN Administration TO ACHIEVE GOAL RASS Protocol - Exam General Appearance: awake alert Eye: PERRL, anicteric sclera ENT: no oropharyngeal lesions, moist mucosa Neck: supple, no JVD Heart: RRR, no murmur Respiratory: no wheezes, no rales Gastrointestinal: soft, non-tender, non-distended, normal bowel sounds Extremities: no cyanosis, no edema Neurological: cranial nerve grossly intact, no focal deficits Psychiatric: normal affect, A&O x 3 Hosp A/P (1) Upper GI bleed Code(s): K92.2 - GASTROINTESTINAL HEMORRHAGE, UNSPECIFIED Status: Acute (2) Acute blood loss anemia Code(s): D62 - ACUTE POSTHEMORRHAGIC ANEMIA Status: Acute (3) Acute respiratory failure with hypoxia Code(s): J96.01 - ACUTE RESPIRATORY FAILURE WITH HYPOXIA Status: Resolved (4) DM2 (diabetes mellitus, type 2) Status: Chronic Qualifiers: Diabetes mellitus fci insulin use: without fci use (5) HTN (hypertension) Code(s): I10 - ESSENTIAL (PRIMARY) HYPERTENSION Status: Chronic Qualifiers: Hypertension type: essential hypertension Qualified Code(s): I10 - Essential (primary) hypertension (6) Morbid obesity with BMI of 45.0-49.9, adult Code(s): E66.01 - MORBID (SEVERE) OBESITY DUE TO EXCESS CALORIES; Z68.42 - BODY MASS INDEX (BMI) 45.0-49.9, ADULT Status: Chronic - Plan had egd with banding of nearly 8 esophageal varices H/H stable, no transfusion done yet this hospitalization tolerating liq diet. hemostable off octreotide drip, protonix q12h, gentle iv fluids, empiric ceftriaxone to ambulate as tolerated in hallway orange dc plan in am
--- NOTE | 2019-10-23 14:54 | PRG ---
DATE OF SERVICE: 10/23/2019 SUBJECTIVE: Gayle Henry is doing well. She was extubated, moved to the floor yesterday. MEDICATIONS: 1. Cefepime once daily. 2. P.r.n. fentanyl. 3. Insulin sliding scale. 4. Ativan p.r.n. 5. Morphine p.r.n. 6. Octreotide drip. 7. Protonix 40 mg IV q.12. 8. Normal saline at 80 an hour. OBJECTIVE: VITAL SIGNS: Temperature is 98, pulse 74, respirations 16, sat 94% on room air, and blood pressure 124/60. GENERAL: She is overweight. She is somewhat somnolent and a little bit sleepy now. She has no asterixis. LUNGS: Clear, decreased breath sounds. ABDOMEN: Soft, nontender. EXTREMITIES: There is no clubbing, cyanosis, or edema. She had central line as well. LABORATORY DATA: Hemoglobin is 8.2 today, it was stable at 7.9 yesterday, 8 the day before that. No basic metabolic profile or liver function tests were performed. ASSESSMENT: 1. Cirrhosis secondary to nonalcoholic fatty liver disease. 2. Variceal hemorrhage. 3. Poor IV access. She did have a central line placed. RECOMMENDATIONS: We will wean off the octreotide today. Continue IV PPI. Advance diet. Hopefully, she can go home tomorrow. There has been no antecedent history of hepatic encephalopathy in the past. I suspect that her has to do with a little bit of sleep apnea and also the fact that she just got off the ventilator yesterday. We will follow with you. Job ID: [id number]
[2019-10-23] MEDS: cefTRIAXone\\ROCEPHIN 1 GM in Sodium Chloride 0.9% 100 ML IVPB SCH (17:44)
[2019-10-24 04:30] LABS: #Basophils 0.1 thou/uL (0.0-0.2); #Eosinphils 0.6 thou/uL (0.0-0.7); #Lymphocytes 2.4 thou/uL (1.20-3.40); #Monocytes 1.1 thou/uL (0.11-0.59); %Basophils 0.9 % (0.0-1.0); %Eosinophils 5.7 % (0.0-10.0); %Lymphocytes 23.6 % (21.0-51.0); %Monocytes 10.6 % (0.0-10.0); %Neutrophils 59.1 % (42.0-75.0); Hemoglobin 8.2 g/dL (12.0-16.0); Mean Corpuscular HGB CONC 33.7 g/dL (32.0-36.0); Mean Platelet Volume 8.3 fL (7.4-10.4); Platelet Count 119 thou/uL (130-400); RBC Distribution Width 13.8 % (11.5-14.5); White Blood Cell (WBC) Count 10.1 thou/uL (4.8-10.8)
[2019-10-24 04:56] LABS: ALT (SGPT) 29 U/L (8-55); AST (SGOT) 47 U/L (5-34); Albumin 2.6 g/dL (3.5-5.0); Alkaline Phosphatase 99 U/L (40-110); Anion Gap 8 mmol/L (10-20); BUN (Urea Nitrogen) 6 mg/dL (7.0-18.7); Calc. Creatinine Clearance 230 mL/min (70-130); Calcium 7.2 mg/dL (7.8-10.44); Carbon Dioxide 25 mmol/L (22-29); Chloride 108 mmol/L (98-107); Estimated GFR-MDRD Greater than 90; Globulin 3.1 g/dL (2.4-3.5); Glucose 141 mg/dL (70-105); Potassium 3.3 mmol/L (3.5-5.1); Protein, Total 5.7 g/dL (6.0-8.3); Sodium 138 mmol/L (136-145)
[2019-10-24 08:41] VITALS: BP 99/58; TEMP 98.4
[2019-10-24] MEDS: Pantoprazole 40 MG VIAL IVP SCH (08:43)
[2019-10-24] MEDS: HumaLOG 300 UNITS/3 ML VIAL SC PRN (11:03)
--- NOTE | 2019-10-24 11:24 | PRG ---
DATE OF SERVICE: 10/24/2019 OBJECTIVE: VITAL SIGNS: Temperature 98.4, pulse 80, blood pressure 119/59. GENERAL: She is alert and oriented to person, place, and time. She has had no bleeding overnight. ABDOMEN: Soft and nontender. NEUROLOGIC: No asterixis. Alert, oriented. LABORATORY DATA: White count 10, hemoglobin 8.2, platelet count 119. INR 1.4 on the 4th. Sodium 138, potassium 3.3, BUN and creatinine are 6 and 0.7, calcium 7.2, AST 47, ALT 28, protein 5.7, albumin 2.6. AFP was 10. TSH was normal. Ammonia was 60. Hepatitis A, B, C were negative. Toxicology on admission, negative for alcohol, negative for UDS. ASSESSMENT: 1. Cirrhosis, presumptively from nonalcoholic steatohepatitis. 2. Gastrointestinal hemorrhage from esophageal varices, eight bands placed. 3. Hemorrhagic anemia, did not require transfusion. RECOMMENDATIONS: 1. Agree with plan for discharge today on PPI, iron. I have talked with Dr. Ragland, her primary sales development consultant, and the patient is going to follow up with him in 1 to 2 weeks. She will need further banding, I have explained this to the patient. 2. Given the patient anemia precautions as well. Job ID: [id number]
--- NOTE | 2019-10-24 15:36 | DIS ---
DATE OF ADMISSION: 10/20/2019 DATE OF DISCHARGE: 10/24/2019 DISCHARGE DISPOSITION: Home. PRIMARY DISCHARGE DIAGNOSES: Gastrointestinal bleed secondary to esophageal varices, status post banding of 8 varices; acute blood loss anemia; acute respiratory failure with hypoxia post procedure with successful extubation in 24 hours; diabetes mellitus, type 2; morbid obesity; hypertension. PROCEDURES DONE DURING HOSPITALIZATION: CT cervical spine done secondary to syncope showed no evidence of fracture or traumatic subluxation. CT of the abdomen and pelvis with IV contrast done showed findings of cirrhosis with portal hypertension and prominent gastrohepatic paraesophageal varicosities. No other acute abnormality was seen. Prior cholecystectomy was noted. CT brain, no acute intracranial process. Upper endoscopy done on 10/21/[address] Garcia showed esophageal varices, one with thrombin clot, grade 3 with multiple red kia signs; portal hypertensive gastropathy with no bleeding or varices in the stomach. Esophageal variceal banding x8 performed. H and H on the day of discharge 8 and 24, initial H and H 11 and 32, platelet count 119, MCV 101. Discharge BUN and creatinine 6 and 0.7. AST 47, ALT 29, alkaline phosphatase 99, albumin 2.6. AFP tumor marker is elevated at 10. Alpha-1 antitrypsin levels are 128 mg/dL that is within normal limits. Total cholesterol 161, triglycerides 111, LDL 86, HDL 53. Lipase is 54. Urine tox screen was negative. Acute hepatitis panel was negative. INPATIENT CONSULTATION: Dr. Garcia for Gastroenterology and Dr. Kaur for Pulmonology. DISCHARGE MEDICATIONS: 1. Protonix 40 mg twice daily for 30 days. 2. Ferrous sulfate 325 mg p.o. twice daily. 3. Multivitamin 1 tablet once daily. 4. Metformin 500 mg p.o. 3 times daily. ALLERGIES: NAPROSYN AND NSAIDS. DISCHARGE PLAN: The patient is to follow up with Dr. Ragland, her tissue specialist, in 1 week; Dr. Grant Smith, her primary care physician, in 1 week. BRIEF COURSE DURING HOSPITALIZATION: The patient initially got admitted on the 2nd after the patient woke up with generalized abdominal cramping. She developed nausea and generalized weakness. The patient later developed dark stools, nearly 3 to 4 of them. The patient also vomited blood. In view of above factors and the patient subsequently passing out, the patient was admitted to the hospital. She has had serial H and H done. She has had consultation with Dr. Garcia for Gastroenterology. She was placed on empiric ceftriaxone in view of initial CAT scan showing varices with signs of cirrhosis. She was also on octreotide drips and Protonix IV q12h. The patient has had upper endoscopy done, which showed esophageal varices, for which banding was done for 8 of them. There were no gastric varices. Postprocedure, the patient remained on the ventilator for 24 hours and got extubated. Prior to discharge, she is ambulating and eating well. She is on solid diet. She has been cleared for discharge by Dr. Garcia. She was given prescription for ferrous sulfate. Her octreotide was discontinued 24 hours prior to discharge. She is hemodynamically stable. Please note, no blood transfusion was given during her stay here. Please note I have seen and examined the patient on the day of discharge. Job ID: [id number] MTDD
== END 2019-10-24 11:53 | disposition home or self-care (01) | DRG 432 ==
LOC: ERS 13:14 → 2NO 16:39 → CCU 10-21 14:33 → ONC 10-22 15:23
PROVIDERS: ADMIT Internal Medicine; ATTEND Internal Medicine
PROC: 02HV33Z Insertion of Infusion Device into Superior Vena Cava, Percutaneous Approach (ICD-10-PCS; principal; 2019-10-21)
DX: K74.60 Unspecified cirrhosis of liver (principal); I85.11 Secondary esophageal varices with bleeding; J96.01 Acute respiratory failure with hypoxia; R57.8 Other shock; D62 Acute posthemorrhagic anemia; K76.6 Portal hypertension; Z68.43 Body mass index [BMI] 50.0-59.9, adult; E11.9 Type 2 diabetes mellitus without complications; E66.01 Morbid (severe) obesity due to excess calories; G43.909 Migraine, unspecified, not intractable, without status migrainosus; K76.0 Fatty (change of) liver, not elsewhere classified; I10 Essential (primary) hypertension; Z88.5 Allergy status to narcotic agent; Z88.8 Allergy status to other drugs, medicaments and biological substances; Z90.49 Acquired absence of other specified parts of digestive tract; Z90.710 Acquired absence of both cervix and uterus
CPT/HCPCS: 36415; 36416; 70450; 71045; 72125; 74177; 80053; 80061; 80074; 80306; 80307; 82103; 82105; 82140; 82274; 82550; 82728; 82805; 83516; 83540; 83550; 83690; 83880; 84443; 84484; 85014; 85018; 85025; 85610; 85730; 86038; 86225; 86850; 86900; 86901; 93005; 94002; 94003; 96361; 96365; 96366; 96375; C9113; J0360; J0696; J2001; J2354; J2405; J2704; J3010; J3490; J7050; Q9967

== ENCOUNTER 2020-01-11 09:19 | Outpatient (CLI) | payer OTHER ==
--- NOTE | 2020-01-11 12:11 | MRI ---
MRI OF THE RIGHT KNEE WITHOUT CONTRAST: Date: 01/11/2020 INDICATION: History of fall with right knee pain. COMPARISON: Right knee radiograph dated 12/28/2019. FINDINGS: There is a Grade II sprain involving the anterior and proximal aspect of the MCL. The more posterior aspect of the superficial MCL appears intact. The LCLC, ACL, PCL, and extensor mechanisms are intact. There is severe chondrosis involving the patellar articular cartilage. There is a near full thickness articular cartilage defect involving the lower median patellar ridge and lateral patellar ridge sudheer uring 8.0 mm. There is a full thickness fissure involving the lateral patellar facet on image 18 of s eries 3 measuring 1.8 mm. There is diffuse chondrosis involving the femorotibial compartments. The me dial and lateral menisci appear intact. IMPRESSION: 1. Grade II MCL sprain. 2. 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 Mild to moderate diffuse chondros is involving the femorotibial compartments. POS: [facility]
== END 2020-01-11 09:20 | disposition home or self-care (01) ==
LOC: SCSMRI 09:19
PROVIDERS: ATTEND Orthopaedic Surgery
DX: S83.411A Sprain of medial collateral ligament of right knee, initial encounter (principal); S83.241A Other tear of medial meniscus, current injury, right knee, initial encounter

== ENCOUNTER 2022-01-08 09:50 | Outpatient (CLI) | payer BC | END 2022-01-08 09:51 | disposition home or self-care (01) | LOC: BICMAMMO 09:50 | PROVIDERS: ATTEND Family Medicine | DX: Z12.31 Encounter for screening mammogram for malignant neoplasm of breast (principal) | CPT/HCPCS: 77063; 77067 ==

== ENCOUNTER 2024-01-13 10:57 | Outpatient (CLI) | payer BC ==
[2024-01-13 13:11] LABS: #Basophils 0.06 10x3/uL (0.0-0.2); %Eosinophils 5.9 % (0.0-10.0); %Lymphocytes 22.4 % (21.0-51.0); %Monocytes 9.7 % (0.0-10.0); %Neutrophils 60.8 % (42.0-75.0); Hematocrit 42.9 % (36.0-47.0); Hemoglobin 14.3 g/dL (12.0-16.0); Mean Corpuscular HGB CONC 33.3 g/dL (32.0-36.0); Mean Corpuscular Hemoglobin 33.8 pg (27.0-31.0); Mean Corpuscular Volume 101.4 fL (78.0-98.0); Mean Platelet Volume 10.2 fL (7.4-10.4); Platelet Count 133 10x3/uL (130-400); RBC Distribution Width 13.8 % (11.5-14.5); Red Blood Cell (RBC) Count 4.23 mill/uL (4.20-5.40)
[2024-01-13 13:30] LABS: ALT (SGPT) 33 U/L (8-55); AST (SGOT) 66 U/L (5-34); Albumin 2.8 g/dL (3.5-5.0); Alkaline Phosphatase 293 U/L (40-110); Anion Gap 9 mmol/L (10-20); BUN (Urea Nitrogen) 11 mg/dL (7.0-18.7); Bilirubin, Direct 0.9 mg/dL (0.1-0.3); Bilirubin, Total 2.2 mg/dL (0.2-1.2); Calc. Creatinine Clearance 0 mL/min (70-130); Calcium 8.9 mg/dL (7.8-10.44); Carbon Dioxide 26 mmol/L (22-29); Chloride 104 mmol/L (98-107); Estimated GFR 72; Glucose 194 mg/dL (70-105); Protein, Total 7.5 g/dL (6.0-8.3); Sodium 135 mmol/L (136-145)
[2024-01-13 13:37] LABS: INR-International Normal Ratio 1.4; Prothrombin Time 16.7 sec (12.0-14.7)
[2024-01-13 13:38] LABS: PTT 33.5 sec (22.9-36.1)
== END 2024-01-13 10:58 | disposition home or self-care (01) ==
LOC: LABBT 10:57
PROVIDERS: ATTEND Orthopaedic Surgery Hand Surgery
DX: Z01.818 Encounter for other preprocedural examination (principal); M67.40 Ganglion, unspecified site
CPT/HCPCS: 80048; 80076; 85025; 85610; 85730

== ENCOUNTER 2024-04-04 13:05 | Outpatient (CLI) | payer BC ==
[2024-04-04 14:45] LABS: #Basophils 0.04 10x3/uL (0.0-0.2); %Basophils 0.8 % (0.0-1.0); %Eosinophils 3.1 % (0.0-10.0); %Lymphocytes 18.9 % (21.0-51.0); %Monocytes 10.1 % (0.0-10.0); %Neutrophils 66.7 % (42.0-75.0); Hemoglobin 14.1 g/dL (12.0-16.0); Mean Corpuscular HGB CONC 33.6 g/dL (32.0-36.0); Mean Corpuscular Hemoglobin 33.7 pg (27.0-31.0); Mean Corpuscular Volume 100.2 fL (78.0-98.0); Mean Platelet Volume 10.4 fL (7.4-10.4); Platelet Count 121 10x3/uL (130-400); RBC Distribution Width 13.9 % (11.5-14.5); Red Blood Cell (RBC) Count 4.19 mill/uL (4.20-5.40)
[2024-04-04 14:48] LABS: ALT (SGPT) 33 U/L (8-55); AST (SGOT) 73 U/L (5-34); Albumin 2.6 g/dL (3.5-5.0); Alkaline Phosphatase 241 U/L (40-110); Anion Gap 10 mmol/L (10-20); BUN (Urea Nitrogen) 11 mg/dL (7.0-18.7); Calc. Creatinine Clearance 0 mL/min (70-130); Calcium 8.3 mg/dL (7.8-10.44); Carbon Dioxide 26 mmol/L (22-29); Chloride 105 mmol/L (98-107); Estimated GFR 73; Globulin 4.1 g/dL (2.4-3.5); Glucose 203 mg/dL (70-105); Protein, Total 6.7 g/dL (6.0-8.3); Sodium 137 mmol/L (136-145)
== END 2024-04-04 13:06 | disposition home or self-care (01) ==
LOC: LABBT 13:05
PROVIDERS: ATTEND Internal Medicine Cardiovascular Disease
DX: Z01.818 Encounter for other preprocedural examination (principal); R55 Syncope and collapse
CPT/HCPCS: 80053; 85025; 93005; 93010

== ENCOUNTER 2024-04-05 05:53 | Day surgery (SDC) | payer BC ==
[2024-04-04 13:35] VITALS: BMI 55.8
[2024-04-05] MEDS ORDERED: fentaNYL 50 mcg/mL 1 mL Vial ONE (06:26)
[2024-04-05] MEDS ORDERED: Heparin 10,000 UNITS/ 10 ML VIAL ONE (06:27)
[2024-04-05] MEDS ORDERED: Verapamil 5 MG/2 ML VIAL ONE (06:27)
[2024-04-05] MEDS ORDERED: Nitroglycerin 50 MG/250 ML BOT 250 ML ONE (06:27)
[2024-04-05] MEDS ORDERED: Midazolam HCl 2 mg/2 ml Vial ONE (06:27)
[2024-04-05] MEDS ORDERED: Iopamidol 370 76% 100 ML VIAL ONE (13:37)
== END 2024-04-05 10:25 | disposition home or self-care (01) ==
LOC: SDC 05:53
PROVIDERS: ATTEND Internal Medicine Cardiovascular Disease
PROC: 4A023N7 Measurement of Cardiac Sampling and Pressure, Left Heart, Percutaneous Approach (ICD-10-PCS; principal; 2024-04-05)
DX: R55 Syncope and collapse (principal); R07.89 Other chest pain; R06.02 Shortness of breath; R00.2 Palpitations; E11.9 Type 2 diabetes mellitus without complications; E66.01 Morbid (severe) obesity due to excess calories; F41.9 Anxiety disorder, unspecified; F32.9 Major depressive disorder, single episode, unspecified; Z68.43 Body mass index [BMI] 50.0-59.9, adult; Z88.8 Allergy status to other drugs, medicaments and biological substances; Z79.84 Long term (current) use of oral hypoglycemic drugs; Z79.899 Other long term (current) drug therapy
CPT/HCPCS: 93458; 99152; C1769; C1789; C1894; J1644; J2250; J3010; Q9967

== ENCOUNTER 2024-05-04 06:55 | Day surgery (SDC) | payer BC ==
[2024-05-03 12:19] VITALS: BMI 53.2
[2024-05-04] MEDS ORDERED: Midazolam HCl 2 mg/2 ml Vial ONE (09:24)
[2024-05-04] MEDS ORDERED: KETAMINE 100 MG/ML (5ML VIAL) ONE (09:24)
[2024-05-04] MEDS ORDERED: PROPOFOL 40 ML ONE (09:25)
[2024-05-04] MEDS ORDERED: PROPOFOL 20 ML ONE (09:53)
== END 2024-05-04 11:20 | disposition home or self-care (01) ==
LOC: SDC 06:55
PROVIDERS: ATTEND Internal Medicine Gastroenterology
PROC: 0DB68ZX Excision of Stomach, Via Natural or Artificial Opening Endoscopic, Diagnostic (ICD-10-PCS; principal; 2024-05-04)
PROC: 0DBM8ZZ Excision of Descending Colon, Via Natural or Artificial Opening Endoscopic (ICD-10-PCS; principal; 2024-05-04)
DX: D12.3 Benign neoplasm of transverse colon (principal); D12.0 Benign neoplasm of cecum; K63.5 Polyp of colon; K64.8 Other hemorrhoids; K44.9 Diaphragmatic hernia without obstruction or gangrene; K76.6 Portal hypertension; K74.60 Unspecified cirrhosis of liver; K31.819 Angiodysplasia of stomach and duodenum without bleeding; K29.70 Gastritis, unspecified, without bleeding; K31.89 Other diseases of stomach and duodenum; K21.9 Gastro-esophageal reflux disease without esophagitis; D64.9 Anemia, unspecified; F41.9 Anxiety disorder, unspecified; E11.9 Type 2 diabetes mellitus without complications; K76.0 Fatty (change of) liver, not elsewhere classified; K75.81 Nonalcoholic steatohepatitis (NASH); Z90.710 Acquired absence of both cervix and uterus; Z90.49 Acquired absence of other specified parts of digestive tract; Z79.84 Long term (current) use of oral hypoglycemic drugs; Z79.899 Other long term (current) drug therapy; Z95.828 Presence of other vascular implants and grafts
CPT/HCPCS: 88305; J2250; J2704